=== PATIENT | female | born 1960 | race Asian ===

== ENCOUNTER 2019-12-03 11:41 | Observation (INO) | payer OTHER, SELFPAY ==
[2019-12-03] MEDS ORDERED: Ondansetron PF 4 MG/2 ML Vial ONE (12:18)
--- NOTE | 2019-12-03 14:05 | RAD ---
PORTABLE UPRIGHT FRONTAL CHEST RADIOGRAPH: Date: 12/03/2019 COMPARISON: None. HISTORY: Fall, trauma, pain. FINDINGS: No pneumothorax, pleural fluid, lobar consolidation, or alveolar edema. Heart and mediastinal contour s are unremarkable. IMPRESSION: No acute findings. POS: [facility]
--- NOTE | 2019-12-03 14:18 | CT ---
CERVICAL SPINE CT WITHOUT CONTRAST: DATE: 12/03/2019. COMPARISON: None. HISTORY: Fall, injury, trauma, pain. TECHNIQUE: Axial CT imaging at 2.5 mm intervals from the skull base through the lung apices without contrast med ia. Coronal and sagittal reformatted imaging obtained. FINDINGS: The visualized lung apices appear grossly unremarkable. There is degenerative change at the atlantoaxial interspace. The craniocervical junction, atlantoaxial interspace, and cervicothoracic junction appear intact. Th ere is mild anterior osteophyte formation at C4-5 and C5-6. No prevertebral soft tissue swelling. A midline inferior occipital bone fracture is noted. The skull fracture of the midline posterior occipital region is better assessed on the head CT also p erformed 12/03/2019. C1 ring is intact. Incidental note is made of a tiny lucent area within the C4 vertebral body to the left of midline estevan suring 3 mm, too small to characterize. No acute fracture or dislocation is evident within the cervi jose alberto spine. IMPRESSION: 1. Midline nondisplaced occipital skull fracture. 2. Cervical spine degenerative change. 3. No acute fracture or dislocation within the cervical spine. POS: [facility]
--- NOTE | 2019-12-03 14:54 | CT ---
NONCONTRAST CT HEAD: HISTORY: Head injury after tripping and falling. The patient hit back of head. Abrasions. COMPARISON: None. FINDINGS: There is increased density seen in a subarachnoid location left anterior frontal lobe as well as in t he left temporal lobe most compatible with a small amount of subarachnoid hemorrhage. In addition, t here is a tiny area of increased density in an anterior left frontal subdural location which may repr esent trace subdural hemorrhage in this region. There is also an area of slight diminished attenuati on along the inner table of the right anteroparietal bone which may represent vascular structure or p ossibly a tiny subdural hematoma in this region. No large intraparenchymal or extraaxial hemorrhage is seen. There is no acute cortical infarction, mass effect, or midline shift. Ventricular system i s normal in size, shape, and position. There is hyperostosis involving the anterior frontal bones along the inner table. There is a nondisp laced fracture involving the midline of the occipital bone with nondisplaced fracture extending to th e level of the foramen magnum. IMPRESSION: 1. Areas of subarachnoid hemorrhage in the left cerebral hemisphere with a suggestion of trace left subdural hemorrhage and questionable subdural hemorrhage on the right versus prominent vessel. Tesfaye nued followup is recommended. 2. Nondisplaced midline occipital bone fracture. 3. Minimal scalp soft tissue hematoma in the posterior occipital region. 4. The above findings were discussed with EMELY Lo, in the emergency department on 12/03/2019 at 1245 hours. CODE CR POS: [facility]
[2019-12-03] MEDS ORDERED: Promethazine HCl 25 MG/ML VIAL ONE (14:57)
[2019-12-03] MEDS ORDERED: Morphine 4 MG/ML VIAL ONE (14:57)
[2019-12-03] MEDS ORDERED: Milk Of Magnesia 30 ML UDCUP PO PRN (15:28)
[2019-12-03] MEDS ORDERED: Promethazine HCl 25 MG/ML VIAL IM PRN (15:28)
[2019-12-03] MEDS ORDERED: Acetaminophen 325 MG TAB PO PRN (15:28)
[2019-12-03] MEDS ORDERED: hydrALAZINE 20 MG/ML VIAL SLOW IVP PRN ×2 (15:28→17:21)
[2019-12-03] MEDS ORDERED: Morphine 2 MG/ML SYRINGE SLOW IVP PRN (15:28)
[2019-12-03] MEDS ORDERED: diphenhydrAMINE 50 MG/ML VIAL IVP PRN (15:28)
[2019-12-03] MEDS ORDERED: Labetalol HCl 100 MG/20 ML VIAL SLOW IVP PRN (15:28)
[2019-12-03] MEDS ORDERED: Losartan 25 MG TAB PO SCH (15:45)
[2019-12-03 15:56] LABS: #Lymphocytes 0.8 thou/uL (1.20-3.40); #Monocytes 0.7 thou/uL (0.11-0.59); #Neutrophils 13.7 thou/uL (1.40-6.50); %Basophils 0.2 % (0.0-1.0); %Eosinophils 0.3 % (0.0-10.0); %Lymphocytes 5.4 % (21.0-51.0); %Monocytes 4.5 % (0.0-10.0); %Neutrophils 89.6 % (42.0-75.0); Hemoglobin 13.9 g/dL (12.0-16.0); Mean Corpuscular HGB CONC 33.2 g/dL (32.0-36.0); Mean Corpuscular Hemoglobin 31.1 pg (27.0-31.0); Mean Corpuscular Volume 93.7 fL (78.0-98.0); Mean Platelet Volume 8.5 fL (7.4-10.4); Platelet Count 193 thou/uL (130-400); RBC Distribution Width 11.8 % (11.5-14.5); Red Blood Cell (RBC) Count 4.46 mill/uL (4.20-5.40); White Blood Cell (WBC) Count 15.3 thou/uL (4.8-10.8)
[2019-12-03 16:02] LABS: PTT 26.8 SEC (22.9-36.1); Prothrombin Time 12.9 SEC (12.0-14.7)
[2019-12-03 16:17] LABS: ALT (SGPT) 53 U/L (8-55); AST (SGOT) 41 U/L (5-34); Albumin 4.6 g/dL (3.5-5.0); Alkaline Phosphatase 63 U/L (40-110); Anion Gap 19 mmol/L (10-20); BUN (Urea Nitrogen) 11 mg/dL (9.8-20.1); Bilirubin, Total 0.5 mg/dL (0.2-1.2); Calc. Creatinine Clearance 0 mL/min (70-130); Calcium 9.1 mg/dL (7.8-10.44); Carbon Dioxide 22 mmol/L (22-29); Chloride 105 mmol/L (98-107); Estimated GFR-MDRD 84; Globulin 2.8 g/dL (2.4-3.5); Glucose 136 mg/dL (70-105); Potassium 4.5 mmol/L (3.5-5.1); Protein, Total 7.4 g/dL (6.0-8.3); Sodium 141 mmol/L (136-145)
--- NOTE | 2019-12-03 16:59 | HP ---
REQUESTING PHYSICIAN: Tomas Mayer MD ATTENDING SURGEON: Carlos Alberto Mary MD CONSULTATIONS: Neurosurgery; Salina Tucker MD HISTORY OF PRESENT ILLNESS: The patient is a 59-year-old [place] woman who was walking with her dog when the dog tripped her and she fell backwards onto her head. She denied loss of consciousness, but was brought to the emergency department due to significant headache and nausea and vomiting. The patient underwent evaluation, examination, and was noted to have a nondisplaced occipital bone fracture and subarachnoid and subdural hemorrhages very small in size. The patient's [place] Coma Scale was 15 since her fall. After receiving pain medication and nausea medication, her symptoms have been greatly decreased. We have been asked to evaluate the patient for admission and obtain neurosurgical consultation. ALLERGIES: NONE. CURRENT MEDICATIONS: 1. Losartan. 2. Lovastatin. 3. Metformin. 4. Vitamin D. PAST MEDICAL HISTORY: Hypertension and diabetes. SURGICAL HISTORY: Sinus surgery. SOCIAL HISTORY: The patient denies drug, tobacco, or alcohol use. She lives at home with family. REVIEW OF SYSTEMS: 10-point review of systems is negative as otherwise stated. PHYSICAL EXAMINATION: VITAL SIGNS: Blood pressure 164/82, heart rate 99, respirations 18, oxygen saturation is 96% on room air, and temperature is 99.0. GENERAL: The patient is resting comfortably in bed. She had her eyes closed when I entered the room, but opened them to verbal stimuli. Her exam was assisted via a video progressive die maker. Her [place] Coma Scale was 14, -1 for eye opening. HEENT: Head is normocephalic with a contusion noted to the occiput. Eyes; extraocular motion intact. PERRLA bilaterally. The patient does have photophobia. Ears are atraumatic without discharge. Nose is atraumatic without discharge. Oropharynx is clear. NECK: Nontender with trachea is midline. No JVD. CHEST: Clear to auscultation with good inspiratory and expiratory effort. HEART: Regular rate and rhythm. ABDOMEN: Soft, flat, nontender with active bowel sounds. PELVIS: Stable. EXTREMITIES: Neurovascularly intact x4. BACK: By report is atraumatic and nontender. LABORATORY FINDINGS: White blood cell count 15.3, hemoglobin 13.9, hematocrit 41.8, platelet 193. Chemistry is pending. PTT 27, INR 1.0, PT 13. RADIOGRAPHIC FINDINGS: CT of the brain without contrast shows areas of subarachnoid hemorrhage in the left cerebral hemisphere with suggestion of trace left subdural hemorrhage and questionable subdural hemorrhage on the right versus prominent vessel. There is a nondisplaced midline occiput bone fracture and minimal scalp soft tissue hematoma in the posterior occipital region. CT of the C-spine without contrast again showed the nondisplaced occipital skull fracture. No acute fracture or dislocation within the cervical spine. AP chest x-ray shows no acute findings. ASSESSMENT AND PLAN: 1. Status post ground-level fall. 2. Subarachnoid hemorrhage with possible subdural hemorrhage. 3. Nondisplaced midline occipital bone fracture. 4. Acute pain, nausea and vomiting secondary to above. Plan will be to admit the patient to the surgical floor. She will have q.2 hour neuro checks with a repeat head CT in 8 hours from the time of her first one. It will happen sooner if she has a decline in her GCS. The patient will have clear liquid diet that can be advanced once her nausea has improved or resolved. The patient will have pain control, pulmonary toilet, gastritis, mechanical VTE prophylaxis. Due to the patient's intracranial hemorrhages, she will not have chemical VTE prophylaxis. The evaluation, examination, laboratory and radiographic findings will be discussed with Dr. Mary after this dictation. The patient was evaluated by Neurosurgery in the emergency department. Job ID: [id number]
[2019-12-03] MEDS ORDERED: Dextrose 50% Abboject 50 ML SYRINGE SLOW IVP PRN (17:21)
[2019-12-03] MEDS ORDERED: Ondansetron ODT 4 MG TAB PO PRN (17:21)
[2019-12-03] MEDS ORDERED: HumaLOG 300 UNITS/3 ML VIAL SC PRN ×2 (17:21)
[2019-12-03] MEDS ORDERED: Ondansetron PF 4 MG/2 ML Vial IVP PRN (17:21)
[2019-12-03] MEDS ORDERED: Dextrose 5% in Water 1,000 ML IV PRN (17:21)
[2019-12-03 18:02] VITALS: BMI 24.8
[2019-12-03] MEDS: Sodium Chloride 0.9% 1,000 ML IV SCH (18:50)
[2019-12-03] MEDS: Famotidine 20 MG TAB PO SCH (20:49)
--- NOTE | 2019-12-03 21:37 | CON ---
DATE OF CONSULTATION: 12/03/2019 CHIEF COMPLAINT: "I fell and hit the back of my head and it hurts." HISTORY OF PRESENT ILLNESS: This 59-year-old female states she tripped over her dog this morning and fell backwards, hitting the back of her head on gravel. She denies losing consciousness or loss of vision or hearing. Denies any neck pain. States she is not taking anticoagulants. PAST MEDICAL HISTORY: Hypertension, diabetes. ALLERGIES: NO KNOWN DRUG ALLERGIES. CURRENT MEDICATIONS: 1. Losartan 50 mg. 2. Lovastatin 10 mg. 3. Metformin 500 mg. 4. Vitamin D3, 1000 international units. REVIEW OF SYSTEMS: CONSTITUTIONAL: Denies fever or chills. ENT: Denies change in vision or hearing. CARDIAC: Denies chest pain, shortness of breath, or diaphoresis. PULMONARY: Denies shortness of breath, cough, or hemoptysis. GI: Denies abdominal pain, nausea, vomiting, diarrhea, or change in stool formation and consistency. : Denies trouble with urination, frequency of urination, or bloody urine. SKIN: Abrasion in the back of her head. MUSCULOSKELETAL: As per History of Present Illness. NEUROLOGICAL: As per History of Present Illness. PSYCHOLOGICAL: Denies anxiety, depression, or behavior changes. LABORATORY DATA: WBC 15.3, platelet count 193. INR 1.0. Sodium 141. PHYSICAL EXAMINATION: VITAL SIGNS: In the emergency room, blood pressure 164/82, pulse 99, respiratory rate 18, and temperature 99. HEENT: Pupils are equal. Extraocular movements are intact. NECK: Soft, supple. No masses are noted. Range of motion is intact and nonpainful. NEUROLOGIC: Awake, alert, and oriented x3. Memory, attention, and fund of knowledge are normal. Cranial nerves are grossly intact. Upper extremities, she has good strength in her deltoids, biceps, triceps, wrist extensors, finger extensions, finger intrinsics. Sensation is equal bilaterally. Lower extremities, she has good strength bilateral in her iliopsoas, quadriceps, hamstrings, anterior tib, EHL, and gastrocnemius. There is no area of dermatomal sensory loss. The toes are downgoing. Eye response, open spontaneously. Verbal response, oriented and converses. Motor response, obeys verbal commands. DIAGNOSTIC MALICK: CT of the cervical spine; no acute fractures or dislocations within the cervical spine. Head CT, nondisplaced occipital fracture. Subarachnoid and subdural hemorrhage in the left frontal and temporal area. PLAN: She is going to be admitted under the Trauma Service. Recommend q.2-hour neuro checks. We will repeat the CT of the head in 8 hours. We will see the patient in a.m. If her repeat imaging is same or improving she can follow up in our clinic in 2 to 4 weeks. We will repeat her CT of the head in 2 to 3 weeks. Job ID: [id number] [facility]
[2019-12-03] MEDS ORDERED: Gabapentin 100 MG CAP PO PRN (22:13)
[2019-12-03] MEDS ORDERED: Cyclobenzaprine 10 MG TAB PO PRN (22:13)
[2019-12-03] MEDS ORDERED: traMADol HCl 50 MG TAB PO PRN (22:13)
[2019-12-03] MEDS ORDERED: traMADol HCl 50 MG TAB PO SCH (22:15)
[2019-12-03] MEDS ORDERED: Gabapentin 100 MG CAP PO SCH (22:15)
[2019-12-03] MEDS ORDERED: Scopolamine 1.5 mg/72 hour Patch TD SCH (22:30)
--- NOTE | 2019-12-03 23:41 | CT ---
CT BRAIN WITHOUT CONTRAST: 12/03/19 HISTORY: Subarachnoid hemorrhage. COMPARISON: CT brain same day. FINDINGS: Small volume left temporal and left frontal subarachnoid hemorrhage. No interval increase in subarach noid hemorrhage. Small right frontal convexity subdural hematoma measuring 2-3 mm. No significant mass effect. No midl ine shift. No loss of normal pablo-white matter differentiation. Midline occipital bone fracture extends to the f oramen magnum. IMPRESSION: 1. No interval size increase of the left frontal and temporal subarachnoid hemorrhage. 2. Small 2-3 mm right frontal convexity subdural hematoma without mass effect. POS: HOME
[2019-12-03] MEDS: Acetaminophen 500 MG TAB PO SCH (23:57)
--- NOTE | 2019-12-04 00:41 | PRG ---
DATE OF SERVICE: 12/03/2019 SUBJECTIVE: Ms. Red was admitted earlier today for subarachnoid hemorrhage and nondisplaced midline occipital bone fracture, status post ground level fall. The patient remained neurological intact. Vital signs stable. She reports headache and dizziness, not able to resolve yet. The patient denies vomiting. She is able to tolerate with her clear liquid diet. Her urine is adequate. Her vital signs have been stable. Currently, the patient is lying in bed, comfortable, with no acute respiratory distress. Complains of headache and nauseated. OBJECTIVE: VITAL SIGNS: Temperature 98.5, heart rate 85, respiratory rate 16, O2 saturation 97% on room air, and blood pressure 150/83. LUNGS: Clear bilaterally. HEART: Regular rate and rhythm. ABDOMEN: Soft, nondistended. EXTREMITIES: Neurovascularly intact x4. NEUROLOGIC: No focal neurologic deficits. GCS 15. ASSESSMENT: 1. Status post ground level fall. 2. Subarachnoid hemorrhage. 3. Nondisplaced midline occipital bone fracture. PLAN: Plan will be to continue supportive care. Continue pain control. Continue neuro check q.2 hours. The patient has planned to have repeat CT scan at 2300 hours. The patient will be working with Physical Therapy and Occupational Therapy. Anticipate discharge home in the next 24 to [address] scan is stable. Job ID: [id number]
[2019-12-04] MEDS: Sodium Chloride 0.9% 1,000 ML IV SCH (05:21)
[2019-12-04] MEDS: Acetaminophen 500 MG TAB PO SCH ×2 (05:29→12:35)
--- NOTE | 2019-12-04 08:36 | PRG ---
DATE OF SERVICE: 12/04/2019 I personally interviewed and examined the patient, agreed with documentation of Cruz Yo PA-C, dated 12/03/2019. Briefly, Justin Red is a 59-year-old woman, who was walking a dog yesterday, by report. She fell backward and then hit her head and suffered an occipital skull fracture and some small traumatic subarachnoid hemorrhage of the left frontal lobe and left temporal lobe. She was admitted for observation overnight. This morning, Ms. Red complains of dizziness when she moves her head too quickly. This makes her feel nauseated, but the feeling lasts about 30 seconds and then goes away. Otherwise, she feels reasonably well with appropriate head tenderness and headache. The T-max I see is 98.6 degrees. Blood pressure is a bit high in the 160s. I do not find any focal neurological deficit on examination. A followup CT scan done late yesterday compared to her admission CT scan showed decreased amount of subarachnoid hemorrhage. Ms. Red is stable neurologically. Her hemorrhage is resolving already. She will need a follow up scan in 3 to 4 weeks which our clinic will arrange. She can be discharged when safe for her activities of daily living. If she remains vertiginous 3 weeks after her head injury I usually send patients on to otolaryngology for vestibular testing and Israel-Hallpike/Eply maneuvers. Job ID: [id number] [facility]
[2019-12-04] MEDS: Famotidine 20 MG TAB PO SCH (08:46)
[2019-12-04] MEDS ORDERED: Losartan 25 MG TAB PO SCH (09:00)
[2019-12-04] MEDS ORDERED: Pantoprazole 40 MG VIAL IVP SCH (09:00)
--- NOTE | 2019-12-04 09:19 | PDOC.EVN ---
Event Note - Event Note Event Note: Patient seen and examined. Neuro intact. c/o dizziness when walking. Appreciate neurosurgery consult. Possible DC later today unless limited by dizziness
[2019-12-04 15:50] VITALS: TEMP 99.2
[2019-12-05 08:15] VITALS: BP 154/87
--- NOTE | 2019-12-06 11:05 | DIS ---
DATE OF ADMISSION: 12/03/2019 DATE OF DISCHARGE: 12/04/2019 ADMISSION DIAGNOSES: 1. Status post ground level fall. 2. Subarachnoid hemorrhage with possible subdural hemorrhage. 3. Nondisplaced midline occipital bone fracture. 4. Acute pain, nausea and vomiting secondary to above. CONSULTATIONS: Neurosurgery, Dr. Tucker. PROCEDURES: None. HOSPITAL COURSE: Patient is a 59-year-old woman who was brought to the emergency department after a ground level fall. She was reportedly walking with her dogs when tripped or causing her to fall backwards striking her head. She was brought to the emergency department, where she underwent evaluation and examination and was noted to have the above injuries. Patient remained stable overnight. Her repeat head CT did not show any evolution of her subarachnoid hemorrhage and actually shows a decreased amount the following morning. The patient's nausea and vomiting had markedly subsided, though not completely resolved with oral medications and scopolamine patch. At the time of discharge, she was ambulating with minimal assistance. Her pain was controlled, and she continued to wear her scopolamine patch. Patient will follow up with Dr. Tucker in his clinic in 2 to 3 weeks, sooner as needed. Job ID: [id number]
== END 2019-12-04 17:35 | disposition home or self-care (01) ==
LOC: ERS 11:41 → INTOOBSV 15:53 → SURG A 15:53
PROVIDERS: ADMIT Surgery; ATTEND Surgery
DX: S06.6X9A Traumatic subarachnoid hemorrhage with loss of consciousness of unspecified duration, initial encounter (principal); S02.118A Other fracture of occiput, unspecified side, initial encounter for closed fracture; E11.9 Type 2 diabetes mellitus without complications; I10 Essential (primary) hypertension; G89.11 Acute pain due to trauma; Z79.84 Long term (current) use of oral hypoglycemic drugs; Z79.899 Other long term (current) drug therapy; W01.0XXA Fall on same level from slipping, tripping and stumbling without subsequent striking against object, initial encounter
CPT/HCPCS: 36415; 36416; 70450; 71045; 72125; 80053; 85025; 85610; 85730; 96361; 96365; 96375; 96376; C9113; G0378; G0390; J2270; J2405; J2550

== ENCOUNTER 2019-12-21 15:10 | Outpatient (CLI) | payer OTHER ==
--- NOTE | 2019-12-21 15:57 | CT ---
Exam: Head CT without contrast HISTORY: Dizziness. Headache. Follow-up intracranial hemorrhage. COMPARISON: 12/03/2019 FINDINGS: Hemorrhage: Interval resolution of previously noted subdural hematoma along the right frontal convexi ty as well as subarachnoid hemorrhage in the left frontal and temporal sulci. No new parenchymal hemorrhage. No new extra-axial hematoma. Brain parenchyma: Cortical pablo-white matter differentiation is preserved. No mass effect or midline shift. Basilar cisterns are patent. Ventricular system: Ventricles and sulci are patent and symmetric. Calvarium: Intact. Sinuses and mastoid air cells: Adequate aeration. IMPRESSION: 1. No acute intracranial process. 2. Interval resolution of previously noted intracranial hemorrhage.
== END 2019-12-21 15:11 | disposition home or self-care (01) ==
LOC: BICCT 15:10
PROVIDERS: ATTEND Neurological Surgery
DX: I60.9 Nontraumatic subarachnoid hemorrhage, unspecified (principal)
CPT/HCPCS: 70450